=== PATIENT | female | born 1985 | race Caucasian/White ===

== ENCOUNTER 2023-11-19 11:56 | Outpatient (CLI) | payer BC ==
[~2023-11-19] VITALS: Ht 158.8 cm; Wt 89.4 kg
[2023-11-19] MEDS ORDERED: albuterol 2.5 MG/3 ML nebule NEB ONE (12:40)
[2023-11-19 12:50] VITALS: PULSE 106; RESP 14; O2SAT 95
== END 2023-11-19 23:59 | disposition home or self-care (01) ==
LOC: RT 11:56
PROVIDERS: ATTEND Internal Medicine Pulmonary Disease
DX: J45.909 Unspecified asthma, uncomplicated (principal); R94.2 Abnormal results of pulmonary function studies; T78.40XA Allergy, unspecified, initial encounter; X58.XXXA Exposure to other specified factors, initial encounter
CPT/HCPCS: 94060; 94727; 94729; 94760; A4565; A4620; A6449